=== PATIENT | female | born 1975 | race American Indian/Alaskan Native ===

== ENCOUNTER 2018-07-23 15:18 | Outpatient (CLI) | payer OTHER ==
--- NOTE | 2018-07-24 12:18 | XRay Report ---
FINAL REPORT EXAM: XR ANKLE 3+V RT HISTORY: RIGHT ANKLE PAIN TECHNIQUE: Three views of the right ankle. PRIORS: None. FINDINGS: There is no evidence of acute fracture. There is no evidence of joint dislocation. There is a small plantar heel spur. IMPRESSION: There is no acute abnormality identified.
== END 2018-07-23 15:19 | disposition home or self-care (01) ==
LOC: SPVIMAG 15:18
PROVIDERS: ATTEND Family Medicine
DX: M25.571 Pain in right ankle and joints of right foot (principal)

== ENCOUNTER 2018-08-04 11:22 | Outpatient (CLI) | payer OTHER ==
--- NOTE | 2018-08-04 16:10 | Ultrasound Report ---
TRANSABDOMINAL AND TRANSVAGINAL PELVIC ULTRASOUND: 08/04/18 11:22:00 CLINICAL: Heavy menstrual cycles and history of fibroids. COMPARISON: 12/30/15 FINDINGS: Transabdominal and transvaginal pelvic ultrasound demonstrated an enlarged fibroid uterus measuring approximately 16.0 x 8.5 x 10.1 cm. The transabdominal imaging is far superior to transvaginal imaging but is not as good as on the last exam. Largest fibroid is located subserosal in the right uterine fundus and measures 6.7 x 6.6 x 10.2 cm. The next largest is a fundal intramural fibroid measuring 6.7 x 6.5 x 9.0 cm. An anterior fundal subserosal fibroid measures 2.6 x 3.7 x 2.6 cm. A posterior subserosal fibroid in the uterine body measures 7.1 x 5.1 x 5.6 cm. The endometrium is not identified and cannot be measured. Ovaries are not identified. No adnexal mass. No free fluid. Normal urinary bladder. IMPRESSION: Enlarged fibroid uterus. Although the overall uterine measurement has not changed significantly since 12/30/15, the individual fibroids have enlarged compared to previous measurements. Ovaries are not identified and the endometrium is not visible on this exam. Consider CT or MRI of the pelvis without and with contrast for a more accurate assessment of individual fibroids ,overall uterine size and to evaluate ovaries.
== END 2018-08-04 11:23 | disposition home or self-care (01) ==
LOC: SPVWC 11:22
PROVIDERS: ATTEND Family Medicine
DX: D25.2 Subserosal leiomyoma of uterus (principal)
CPT/HCPCS: 76830; 76856